=== PATIENT | female | born 1980 | race Hispanic/Latino ===

== ENCOUNTER 2017-07-27 11:56 | Inpatient (IN) | payer SELFPAY ==
[~2017-07-27] VITALS: Ht 157.5 cm; Wt 92.5 kg
[2017-07-27] MEDS ORDERED: ONDANSETRON HCL 4 MG/2 ML VIAL ONE ×2 (13:09→18:23)
[2017-07-27] MEDS ORDERED: SODIUM CHLORIDE 0.9% 1000ML 1,000 ML IV ONE (13:09)
[2017-07-27] MEDS ORDERED: MORPHINE SULFATE 8 MG/ML VIAL ONE ×2 (13:09→18:23)
[2017-07-27 13:20] LABS: ALBUMIN 3.7 g/dL (3.5-5.0); BILIRUBIN,TOTAL 0.4 mg/dL (0.2-1.0); CREATININE 0.5 mg/dL (0.5-1.5); POTASSIUM 3.9 mmol/L (3.5-5.1); TOTAL PROTEIN, SERUM 7.7 g/dL (6.0-8.3)
[2017-07-27 14:19] LABS: EOSINOPHILS % (AUTO) 0.1 % (0.0-8.0)
[2017-07-27 14:22] LABS: WHITE BLOOD COUNT (AUTO) 20.4 K/uL (4.8-10.8)
[2017-07-27 14:23] LABS: HEMATOCRIT 45.6 % (36-48); MEAN CORPUSCULAR HEMOGLOBIN 29.4 pg (27.0-33.0); MEAN CORPUSCULAR HGB CONC 33.5 g/dL (32.0-36.0); RED BLOOD CELL COUNT(AUTO) 5.19 MIL/uL (4.00-5.50)
[2017-07-27 14:24] LABS: BASOPHILS % (AUTO) 0.3 % (0.0-5.0); LYMPHOCYTES % (AUTO) 9.3 % (21.0-51.0); MONOCYTES % (AUTO) 2.6 % (3.0-13.0); NEUTROPHILS % (AUTO) 87.7 % (40.0-77.0); PLATELET COUNT (AUTO) 293 K/uL (130-400); RED CELL DISTRIBUTION WIDTH 14.5 % (11.0-15.5)
[2017-07-27] MEDS ORDERED: KETOROLAC TROMETHAMINE 30MG/ML ONE (14:37)
[2017-07-27] MEDS ORDERED: LEVOFLOXACIN 500 MG/D5W 100 ML 100 ML ONE (16:00)
[2017-07-27] MEDS ORDERED: LACTATED RINGERS 1000ML 1,000 ML IV ONE (16:01)
[2017-07-27] MEDS ORDERED: METRONIDAZOLE 500MG/100ML BAG 100 ML ONE (18:18)
[2017-07-27 18:54] VITALS: BP 138/78
[2017-07-27 20:00] VITALS: BP 122/74
[2017-07-27] MEDS ORDERED: ONDANSETRON HCL 4 MG/2 ML VIAL IVP PRN (21:00)
[2017-07-27] MEDS: LACTATED RINGERS 1000ML 1,000 ML IV SCH (21:00)
[2017-07-27] MEDS ORDERED: MORPHINE SULFATE 4 MG/1ML SYG IV PRN (21:00)
[2017-07-27] MEDS ORDERED: MORPHINE SULFATE 2 MG/ML 1ML SYG IVP PRN (21:00)
[2017-07-27 23:58] VITALS: BP 128/70
[2017-07-28] VITALS (23 sets, daily range): BP systolic 109–156; BP diastolic 55–90
[2017-07-28] MEDS: METRONIDAZOLE 500MG/100ML BAG 100 ML IV SCH ×4 (01:47→22:37)
[2017-07-28 04:07] LABS: HEMATOCRIT 40.5 % (36-48); MEAN CORPUSCULAR HEMOGLOBIN 29.8 pg (27.0-33.0); MEAN CORPUSCULAR HGB CONC 34.1 g/dL (32.0-36.0); MEAN CORPUSCULAR VOLUME 87.4 fL (79-99); PLATELET COUNT (AUTO) 259 K/uL (130-400); RED BLOOD CELL COUNT(AUTO) 4.63 MIL/uL (4.00-5.50); RED CELL DISTRIBUTION WIDTH 14.2 % (11.0-15.5); WHITE BLOOD COUNT (AUTO) 14.2 K/uL (4.8-10.8)
[2017-07-28 04:22] LABS: CREATININE 0.6 mg/dL (0.5-1.5); POTASSIUM 3.7 mmol/L (3.5-5.1)
[2017-07-28] MEDS: LACTATED RINGERS 1000ML 1,000 ML IV SCH ×3 (05:50→13:00)
[2017-07-28] MEDS ORDERED: HEPARIN SODIUM 1000UNIT/ML 10ML VIAL ONE (08:25)
[2017-07-28] MEDS ORDERED: NEOSTIGMINE METHYLSULFATE 1MG/ML IV ONE (08:34)
[2017-07-28] MEDS ORDERED: ROCURONIUM BROMIDE 10MG/1ML 5ML VL ONE (08:34)
[2017-07-28] MEDS ORDERED: LIDOCAINE HCL-MPF 1% 5ML AMP IJ ONE (08:34)
[2017-07-28] MEDS ORDERED: LIDOCAINE HCL 2% JELLY 5 ML ONE (08:34)
[2017-07-28] MEDS ORDERED: ONDANSETRON HCL 4 MG/2 ML VIAL ONE (08:34)
[2017-07-28] MEDS ORDERED: LIDOCAINE PF 2% 5ML ABBOJECT ONE (08:34)
[2017-07-28] MEDS ORDERED: DEXAMETHASONE SOD PHOSPHATE 10MG/ML 1ML VIAL ONE (08:34)
[2017-07-28] MEDS ORDERED: GLYCOPYRROLATE 0.2 MG/ML 5 ML VIAL ONE (08:34)
[2017-07-28] MEDS ORDERED: FENTANYL CITRATE PF 50 MCG/1 ML 2ML VIAL ONE (08:35)
[2017-07-28] MEDS ORDERED: PROPOFOL 10 MG/ML 20ML VIAL IV ONE (08:35)
[2017-07-28] MEDS ORDERED: MIDAZOLAM HCL 1 MG/ML 2ML VIAL ONE (08:35)
[2017-07-28] MEDS ORDERED: ACETAMINOPHEN-CODEINE 300/30MG TAB PO PRN (09:45)
[2017-07-28] MEDS ORDERED: MEPERIDINE-PF 50 MG/ML SYG ONE (10:18)
[2017-07-28] MEDS: ACETAMINOPHEN-CODEINE 300/30MG TAB PO PRN ×2 (11:51→22:45)
[2017-07-28] MEDS ORDERED: LEVOFLOXACIN 500 MG/D5W 100 ML 100 ML IV SCH (16:00)
[2017-07-29 04:00] VITALS: BP 103/63
[2017-07-29] MEDS: METRONIDAZOLE 500MG/100ML BAG 100 ML IV SCH (05:39)
[2017-07-29] MEDS: LACTATED RINGERS 1000ML 1,000 ML IV SCH (05:40)
[2017-07-29 07:30] VITALS: BP 109/67
[2017-07-29 11:00] VITALS: BP 115/56
[2017-07-29] MEDS ORDERED: ACET1TAB12 PO (12:23)
== END 2017-07-29 15:15 | disposition home or self-care (01) | DRG 419 ==
LOC: EDH 11:56 → EDHIP 11:57 → 3CH 18:16
PROVIDERS: ADMIT Surgery; ATTEND Surgery
PROC: 0FT44ZZ Resection of Gallbladder, Percutaneous Endoscopic Approach (ICD-10-PCS; principal; 2017-07-28 08:39)
DX: K80.00 Calculus of gallbladder with acute cholecystitis without obstruction (principal); Z28.21 Immunization not carried out because of patient refusal; Z90.710 Acquired absence of both cervix and uterus
CPT/HCPCS: 36415; 76705; 80048; 80053; 83690; 85025; 85027; 88304; 99291; J1100; J1644; J1885; J1956; J2001; J2175; J2250; J2270; J2405; J2704; J2710; J3010; J3490; J7030; J7120